=== PATIENT | male | born 1945 | race Caucasian/White ===

== ENCOUNTER 2022-03-31 12:54 | Observation (INO) | payer MEDICARE, SELFPAY ==
[2022-03-31] VITALS (15 sets, daily range): BP systolic 93–148; BP diastolic 55–72; PULSE 70–103; RESP 16–26; TEMP 35.8–37; O2SAT 94–100; BMI 26.7
--- NOTE | ~2022-03-31 | XR_ITS ---
MODIFIED ESOPHAGRAM HISTORY: Dysphagia. TECHNIQUE: Modified barium esophagram was performed on 04/02/2022. I administered fluoroscopy and perf ormed the exam with speech pathologist. Patient was seated for lateral fluoroscopic imaging for mana stion of thin liquids, pudding, solids and quantified amounts, followed by thin liquids in uncontroll ed amounts. This was recorded on tape. A single fluoroscopic spot image was also recorded. The DAP fo r this procedure was 0.5 Gycm2. The amount of fluoroscopy time used during this procedure was 0.7 min utes. FINDINGS: Oral stage: Reduced labial seal/extension and reduces with movement but with adequate function. Pharyngeal stage: Adequate function. Cervical/esophageal stage: Adequate function. IMPRESSION: Patient tolerated regular consistency oral feedings in the upright position. Please kasia elate with speech pathologist findings and specific feeding recommendations. Reviewed, dictated and finalized at location A. IMPRESSION: Patient tolerated regular consistency oral feedings in the upright position. Please correlate with speech pathologist findings and specific feedi ng recommendations.
--- NOTE | ~2022-03-31 | CT_ITS ---
EXAMINATION: CT brain wo con DATE: 03/31/2022 13:38 INDICATION: Generalized weakness. Ground-level fall. TECHNIQUE: Computed tomography (CT) of the head was performed without intravenous contrast. The dose- length product was 681.00 mGy-cm. Automated exposure control and iterative reconstruction technique w ere employed. COMPARISON: No prior studies for comparison. FINDINGS: There is generalized brain parenchymal atrophy. There is a chronic focal right cerebellar i nfarction. There are scattered mild periventricular and subcortical white matter changes, most likely related to small vessel ischemic disease (microangiopathy). No acute intracranial hemorrhage, infarc tion, mass or mass effect. There is small osteoma in the right frontal sinus. There is mucosal thicke dequan of the ethmoid and right frontal sinus. Mastoids are pneumatized. No depressed skull fractures. IMPRESSION: 1. No acute intracranial abnormality. 2: Chronic right cerebellar infarction. 3: Chronic age-related findings. Reviewed, dictated and finalized at location A.
--- NOTE | ~2022-03-31 | XR_ITS ---
XR chest 1V portable 03/31/2022 14:03 Indication: Weakness and shortness of breath Procedure: AP portable chest Comparison: No prior studies for comparison. Findings: Status post median sternotomy for CABG. Borderline heart size. Patchy bilateral airspace di sease, consistent with pneumonia. No pleural effusion or pneumothorax. Impression: 1: Patchy bilateral airspace disease, compatible with pneumonia. Reviewed, dictated and finalized at location A. Impression: 1: Patchy bilateral airspace disease, compatible with pneumonia.
--- NOTE | ~2022-03-31 | CT_ITS ---
EXAMINATION: CT cervical spine wo con DATE: 03/31/2022 13:38 INDICATION: Ground-level fall. Neck pain. TECHNIQUE: Computed tomography (CT) of the cervical spine was performed without intravenous contrast. The dose-length product was 444 mGy-cm. COMPARISON: None FINDINGS: There is partial fusion at C3-4. There is degenerative disc disease at C4-5, C5-6, C6-7 and C7-T1. Odontoid process is within normal limits. Craniovertebral junction is normal. No evidence for perched facet. There is multilevel advanced facet and uncinate hypertrophy. There is emphysema and c hronic interstitial changes in the lung apices. No acute fracture or traumatic malalignment. There ar e prominent anterior bridging osteophytes at multiple levels. IMPRESSION: 1. No acute abnormality of the cervical spine. 2: Severe cervical spondylosis. Reviewed, dictated and finalized at location A.
--- NOTE | 2022-03-31 13:03 | ECG_ITS ---
Measurements Intervals [place] Rate: 100 P: 34 [place]: 183 QRS: 5 QRSD: 104 T: 17 QT: 332 QTc: 430 Interpretive Statements SINUS TACHYCARDIA DELAYED PRECORDIAL R/S TRANSITION CONSIDER INFERIOR INFARCT, AGE INDETERMINATE BORDERLINE ST-T WAVE ABNORMALITY- HIGH LATERAL LEADS BASELINE ARTIFACT- I, II, III, AVR, AVL, AVF ABNORMAL ECG Electronically Signed On 03-31-2022 15:16:21 CDT by Yong Melo D.O.
--- NOTE | 2022-03-31 13:09 | ED.FALL ---
HPI - Fall General Chief Complaint: Fall Stated Complaint: Fall, Ground Level Time Seen by Provider: 03/31/22 12:59 History of Present Illness HPI Narrative: 77-year-old male with a history of Parkinson's disease presents emergency room for evaluation of a ground-level fall. Patient states at approximately 3 AM, he woke up to use the restroom. Patient slid out of bed and has been laying on the floor until his found him approximately 9 hours later. On presentation to the emergency room, patient is alert and oriented x3 and has no complaints of pain. Patient is complaining of generalized weakness. Related Data Home Medications Medication Instructions Recorded Confirmed aspirin 81 mg tablet,delayed 81 mg PO DAILY 09/23/19 01/05/22 release atorvastatin 10 mg tablet 10 mg PO DAILY 09/23/19 01/05/22 clopidogrel 75 mg tablet 75 mg PO DAILY 09/23/19 01/05/22 divalproex 500 mg tablet,extended 500 mg PO TID 09/23/19 01/05/22 release 24 hr lorazepam 1 mg tablet See Rx Instructions .Route 09/23/19 01/05/22 .COMPLEX PRN risperidone 2 mg tablet 2 mg PO BID 09/23/19 01/05/22 tamsulosin 0.4 mg capsule 0.4 mg PO .COMPLEX 09/23/19 01/05/22 clonazepam 0.5 mg tablet 0.5 mg PO .COMPLEX 01/05/22 01/05/22 metoprolol tartrate 50 mg tablet 50 mg PO BID 01/05/22 01/05/22 Allergies Allergy/AdvReac Type Severity Reaction Status Date / Time amlodipine Allergy Unknown Unknown Verified 03/31/22 14:41 codeine Allergy Unknown Unknown Verified 03/31/22 14:41 olanzapine Allergy Unknown Unknown Verified 03/31/22 14:41 salsalate Allergy Unknown Unknown Verified 03/31/22 14:41 doxycycline AdvReac Diarrhea Verified 03/31/22 14:41 Review of Systems Review of Systems: CONSTITUTIONAL: Denies fever, chills, or sweats. EYES: Denies visual changes, redness, or discharge. ENT: Denies rhinorrhea, congestion, sore throat, or otalgia. CARDIOVASCULAR: Denies chest pain, palpitations, or edema. RESPIRATORY: Denies cough or dyspnea. GASTROINTESTINAL: Denies abdominal pain, nausea, vomiting, or diarrhea. GENITOURINARY: Denies dysuria or hematuria. SKIN: Denies rash or itching. MUSCULOSKELETAL: Denies back pain, joint pain, or myalgia. NEUROLOGIC: Reports generalized weakness PSYCHIATRIC: Denies anxiety or depression. [facility] Past Medical History Medical History (Updated 03/31/22 @ 16:20 by Kavin Olson APRN) Anxiety Arterial stent thrombosis Benign prostate hyperplasia Coronary artery disease Dementia Hyperlipidemia Parkinson disease Pulmonary valvular stenoses Family History Family History Father Family history of lung cancer Mother Family history of malignant neoplasm of breast, Onset Age: 79 Family history of malignant neoplasm of breast in first degree relative Sibling Family history of malignant neoplasm of breast in first degree relative Other Diabetes mellitus Family history of allergic disorder Family history of cardiovascular disease Hypertension Social History Social History (Updated 03/31/22 @ 15:57 by Kerry Freeman PA-C) Social History: Surrogate medical decision maker: Marii Joseph, spouse. Code status: Full code. Smoking status: Former smoker Tobacco type: e-cigarettes/vaping Alcohol intake: never Substance use: never Additional living arrangements comments: Lives with in [place]. 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 Exam Narrative: GENERAL: Well-appearing, well-nourished, and in no acute distress. HEAD: Normocephalic, atraumatic. EYES: Conjunctivae normal, PERRLA and EOMI. ENT: External nose normal, Nares clear, no rhinorrhea or epistaxis. Mucous membranes moist. Oropharynx without tonsillar hypertrophy exudate or other lesions. External ears normal, bilateral TMs normal bilaterally NECK: Supple. No carotid bruits or JVD CHEST: Clear to auscultation. No re
[2022-03-31] MEDS: SODIUM CHLORIDE 0.9% IV 1,000 ML 150 ML IV CONT (13:19)
[2022-03-31 13:29] LABS: Basophils Percent Auto 0.2 % (0.2-1.2); Eosinophils Percent Auto 0.2 % (0-4.4); Hematocrit 41.1 % (42.0-52.0); Hemoglobin 13.7 g/dL (14.0-18.0); Immature Granulocyte Absolute 0.04 K/mm3 (0.00-0.031); Immature Granulocyte Percent A 0.8 % (0-0.5); Immature Platelet Fraction Pct 6.1 % (0.9-11.2); Lymphocytes Absolute Auto 0.72 K/mm3 (0.9-3.2); Lymphocytes Percent Auto 14.8 % (18.3-44.2); Mean Corpuscular HGB Conc 33.3 g/dl (32-36); Mean Corpuscular Hemoglobin 33.3 pg (26-34); Mean Corpuscular Volume 99.8 fl (80-100); Mean Platelet Volume 10.9 fl (7.4-10.4); Monocytes Absolute Auto 0.8 K/mm3 (0.1-0.6); Monocytes Percent Auto 16.3 % (2.6-8.5); Neutrophils Absolute Auto 3.3 K/mm3 (1.3-6.7); Neutrophils Percent Auto 67.7 % (45.5-73.1); Platelet Count Result 104 k/mm3 (150-375); Red Blood Count 4.12 M/mm3 (4.6-6.20); Red Cell Distribution Width 13.6 % (11.5-14.5); White Blood Count 4.9 K/mm3 (4.5-10.0)
[2022-03-31 13:38] LABS: Lactic Acid Reflex 2.7 mmol/L (0.7-2.0)
[2022-03-31 13:39] LABS: Alanine Aminotransferase 8 U/L (6-50); Albumin Level 3.6 g/dL (3.5-5.1); Alkaline Phosphatase 45 U/L (38-126); Anion Gap 10 mmol/L (8-16); Aspartate Amino Transferase 23 U/L (17-59); Bilirubin,Total 0.9 mg/dL (0.2-1.3); Blood Urea Nitrogen 14 mg/dL (9-20); Calcium 8.9 mg/dL (8.4-10.2); Carbon Dioxide 27 mmol/L (22-30); Chloride 95 mmol/L (98-107); Creatine Kinase 263 U/L (55-170); Estimated CRCL calculation 64 ml/min; Estimated Glomerular Filt Rate > 60; Glucose 135 mg/dL (65-110); Potassium 4.2 mmol/L (3.4-5.0); Sodium 132 mmol/L (137-145)
[2022-03-31 13:43] LABS: Appearance Urine Clear (Clear); Bilirubin Urine Negative (Negative); Color Urine Yellow (Yellow); Glucose Urine UA Negative (Negative); Ketones Urine Negative (Negative); Leukocyte Esterase Ur Negative LEU/UL (Negative); Nitrate Urine Negative (Negative); Protein Urine Negative (Negative); Specific Grav Ur 1.015 (1.001-1.035); Urobilinogen Urine 0.2 mg/dL (<2.0); pH Urine 8.5 (5.0-9.0)
[2022-03-31 13:50] LABS: Add Urine Microscopic? YES; Blood Urine Trace-Intact (Negative)
[2022-03-31 13:52] LABS: RBC Urine 0-2 /hpf (0-2); WBC Urine 0-3 /hpf
[2022-03-31 13:55] LABS: Troponin I < 0.012 ng/mL (0.000-0.034)
[2022-03-31 15:17] LABS: SARS-CoV-2 RNA PCR Negative
--- NOTE | 2022-03-31 15:25 | PM.IMHP ---
H&P: HPI History of Present Illness Date/Time: 03/31/22 15:25 Chief Complaint: Fall out of bed. Narrative: This is a pleasant 77-year-old male with Parkinson, coronary artery disease, peripheral vascular disease, and benign prostatic hyperplasia who presented to the ED via EMS from home for evaluation after he fell out of bed. At about 03:00 he got up to use the restroom but was too weak to stand up and he slid out of bed onto his buttocks. Luckily there was no loss of consciousness and he sustained no injuries but he was too weak to get himself up and he lay on the floor for nearly 9 hours before his found him and called for help. With further questioning, he has been more weak the last several days and in fact he thought perhaps he may have a UTI though he has no symptoms of such. He has had some transient blood pressures at the lower end of normal in the ER but vital signs have otherwise been stable and he has been afebrile. His total CK was mildly elevated at 263 but other labs are reassuring and stable. CT of the head and neck showed no acute findings. Chest x-ray however demonstrated patchy bilateral airspace disease compatible with pneumonia and he is being admitted in this setting. With further questioning he does endorse a cough which is occasionally productive as well as a mild decrease in appetite and some loose stools. He denies fever, chills, sweats, congestion, sore throat, chest pain, pleuritic pain, shortness the breast, dysphagia, concerns for aspiration, nausea, and vomiting. No sick contacts. Review of Systems Review of Systems: Twelve systems were reviewed. No headache or neck ache. He denies focal weakness and paresthesias. No syncope or presyncope. Except as documented, all other systems were reviewed and are negative. [facility] Past Medical History Medical History (Updated 03/31/22 @ 20:20 by Kerry Freeman PA-C) Anxiety Benign prostate hyperplasia Coronary artery disease Dementia Hyperlipidemia Parkinson disease Peripheral vascular disease Thrombocytopenia Surgical History Surgical History (Updated 03/31/22 @ 20:20 by Kerry Freeman PA-C) History of cardiac catheterization History of left knee surgery History of three vessel coronary artery bypass History of vascular surgery Bilateral lower extremity stents. Family History Family History Father Family history of lung cancer Mother Family history of malignant neoplasm of breast, Onset Age: 79 Family history of malignant neoplasm of breast in first degree relative Sibling Family history of malignant neoplasm of breast in first degree relative Other Diabetes mellitus Family history of allergic disorder Family history of cardiovascular disease Hypertension Social History Social History Social History: Surrogate medical decision maker: Mariimacy Joseph, spouse. Code status: Full code. Smoking status: Current every day smoker Tobacco type: e-cigarettes/vaping Smokeless tobacco user: other Additional smoking assessment comments: pt vapes with low dose menthol everyday Alcohol intake: never Substance use: never Additional living arrangements comments: Lives with in [place]. 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 Spiritual care concerns: Yes (Shinto) Meds Home Medications and Allergies Home Medications Medication Instructions Recorded Confirmed Type aspirin 81 mg tablet,delayed 81 mg PO DAILY 09/23/19 03/31/22 History release atorvastatin 10 mg tablet 10 mg PO DAILY 09/23/19 03/31/22 History divalproex 500 mg tablet,extended 500 mg PO TID 09/23/19 03/31/22 History release 24 hr lorazepam 1 mg tablet See Rx Instructions .Route 09/23/19 03/31/22 History .COMPLEX PRN Anxiety risperidone 2 mg tablet 2 mg PO BID
--- NOTE | 2022-03-31 15:54 | PC.NURSE ---
Patients dinner tray called at this time, will be sent to room 330
[2022-03-31 16:26] LABS: Reflex Lactic Acid Yes or No Add Lactic
[2022-03-31 17:10] LABS: Lactic Acid 0.8 mmol/L (0.7-2.0)
--- NOTE | 2022-03-31 17:20 | ADMGEN ---
This patient, Constantino Joseph, was admitted to [facility] Surg Room 330-01. Patient/family oriented to hospital policies and general routines including ID bracelet, bed and alarms, visiting hours, pain management, procedures, bathroom and other care routines, personal items, smoking policy, room service/diet, and visiting hours. Information on how to activate the Rapid Response Team has been discussed. Patient/Family are encouraged to report perceived risks to care and to ask questions if they do not understand what they are told or what they should do.
[2022-03-31] MEDS: CARBIDOPA/LEVODOPA 25/100 MG TABLET 2 TABLET BY MOUTH (21:56)
[2022-03-31] MEDS: SODIUM CHLORIDE 0.9% IV 1,000 ML 125 ML IV CONT (21:56)
[2022-03-31] MEDS: clonazePAM (*CRX) 0.5 MG TABLET PO (22:12)
[2022-04-01] VITALS (10 sets, daily range): BP systolic 111–155; BP diastolic 59–85; PULSE 84–103; RESP 17–18; TEMP 36.2–36.8; O2SAT 95–98
[2022-04-01] MEDS: SODIUM CHLORIDE 0.9% IV 1,000 ML 125 ML IV CONT ×3 (06:30→23:52)
[2022-04-01 06:50] LABS: Hematocrit 40.3 % (42.0-52.0); Hemoglobin 13.2 g/dL (14.0-18.0); Immature Platelet Fraction Pct 7.3 % (0.9-11.2); Mean Corpuscular HGB Conc 32.8 g/dl (32-36); Mean Corpuscular Volume 100.8 fl (80-100); Mean Platelet Volume 11.2 fl (7.4-10.4); Platelet Count Result 95 k/mm3 (150-375); Red Cell Distribution Width 13.5 % (11.5-14.5); White Blood Count 5.6 K/mm3 (4.5-10.0)
[2022-04-01 07:08] LABS: Anion Gap 9 mmol/L (8-16); Blood Urea Nitrogen 13 mg/dL (9-20); Calcium 8.3 mg/dL (8.4-10.2); Carbon Dioxide 25 mmol/L (22-30); Chloride 101 mmol/L (98-107); Estimated CRCL calculation 70 ml/min; Estimated Glomerular Filt Rate > 60; Glucose 92 mg/dL (65-110); Magnesium 1.9 mg/dL (1.6-2.3); Potassium 4.1 mmol/L (3.4-5.0); Sodium 135 mmol/L (137-145)
--- NOTE | 2022-04-01 08:21 | PM.IMPN ---
Progress Note: A&P Assessment and Plan (1) Fall from bed: Code(s): W06.XXXA - Fall from bed, initial encounter Status: Acute Assessment and Plan: Patient reports that he has been feeling weak the past couple of days and when he tried to get out of bed this morning he was weak and slid to the ground. He denies syncope, near syncope, and focal weakness. Initiate fall precautions. He is to ambulate only with assistance pending PT/OT consult. (2) Pneumonia: Code(s): J18.9 - Pneumonia, unspecified organism Status: Acute Assessment and Plan: Monitor vital signs, I&Os, neuro status and patient is a fall risk Follow WBC, serum electrolytes, temperature curves and cultures Send sputum cultures Obtain Pneumococcal antigen urine and legionella pneumophila Ag Ur Oxygen via NC; wean as tolerated. Keep SpO2 greater than 88% Ceftriaxone 2 gram IV q24H and Azithromycin 500mg IV q24H DuoNeb q6H and Albuterol q2H PRN P.r.n. Tylenol, Zofran, and melatonin (3) Elevated creatine kinase: Code(s): R74.8 - Abnormal levels of other serum enzymes Status: Acute Assessment and Plan: Mildly elevated due to lying on the floor for nearly 9 hours. Repeat CK this evening to ensure it does not jumped dramatically. (4) Parkinson disease: Code(s): G20 - Parkinson's disease Status: Acute Assessment and Plan: Continue carbidopa-levodopa. Modified barium swallow ordered to rule out aspiration. (5) Thrombocytopenia: Code(s): D69.6 - Thrombocytopenia, unspecified Status: Acute Assessment and Plan: Chronic and stable on review of previous labs. Subjective Date/time seen: 04/01/22 08:21 Patient is doing well this morning. He is alert to self. He is a poor historian. He continues on IV antibiotics Rocephin azithromycin for community-acquired pneumonia. PT and OT have been consulted due to the patient's generalized weakness. Will monitor today and plan for possible discharge soon. Patient denies any shortness of breath he does not require supplemental oxygen and lung sounds are diminished. Review of Systems Review of Systems: All systems reviewed & are unremarkable except as noted in HPI and below Exam Narrative: General: No acute distress. Mental Status: Awake, alert and oriented to person, place, and time with clear speech. Skin: Skin in warm, dry and intact without rashes or lesions. Head: Normocephalic and atraumatic. Eyes: Conjunctivae are clear without exudates or hemorrhage. Sclera is non-icteric. EOM are intact, PERRLA. Ears: The external ear and canal are non-tender and without swelling or discharge. Nose: Nasal mucosa is pink and moist. Septum midline. Nares patent bilaterally. Throat: Oral mucosa pink and moist with good dentition. Tongue midline. Neck: The neck supple without adenopathy. Trachea midline. No JVD. Cardiac: S1 and S2 regular rate and rhythm. No murmurs, gallops, or rubs auscultated. Respiratory: Chest wall symmetric, nontender and without deformity or trauma. Respirations even and unlabored. Lung sounds are diminished to auscultation in all lobes bilaterally without wheezes, rhonchi, or rales. Abdominal: Abdomen soft, round and non-tender to palpation. Bowel sounds present and normoactive in all 4 quadrants. Spine: Neck and back with grossly normal curvature, no deformity in appearance or signs of trauma. Extremities: Upper and lower extremities atraumatic without tenderness or deformity. Full range of motion and muscle strength 4/5 to all extremities bilaterally. Neurological: Full and symmetric motor and light touch sensation bilaterally. Cranial nerves II-XII grossly intact. Objective Data Vital Signs Vital Signs: Vital Signs - 24 hr 03/31/22 12:55 03/31/22 13:00 03/31/22 13:01 Temperature 98 F Pulse Rate 103 H 103 H 100 Respiratory Rate 19 23 H 26 H Blood Pressure 106/63 106/63 Pulse Oximetry 96 95 96 Oxygen
[2022-04-01] MEDS: TAMSULOSIN HCL 0.4 MG CAPSULE PO (08:39)
[2022-04-01] MEDS: ASPIRIN 81 MG ENTERIC TABLET PO (08:39)
[2022-04-01] MEDS: CARBIDOPA/LEVODOPA 25/100 MG TABLET 2 TABLET BY MOUTH ×5 (08:39→21:27)
[2022-04-01] MEDS: ATORVASTATIN 10 MG TABLET PO (08:39)
[2022-04-01] MEDS: risperiDONE 1 MG TABLET 2 MG PO ×2 (08:39→16:40)
[2022-04-01] MEDS: clonazePAM (*CRX) 0.5 MG TABLET PO ×2 (08:42→16:40)
[2022-04-01] MEDS: DIVALPROEX SODIUM ER 500 MG TAB.24H PO ×3 (08:42→16:40)
[2022-04-01 10:36] LABS: Creatine Kinase 366 U/L (55-170)
--- NOTE | 2022-04-01 11:56 | PCSTNOTE ---
Modified Barium Swallow Study HOLD until tomorrow 04/02/22 due to radiology availability. Nursing aware.
[2022-04-01] MEDS: MELATONIN 5 MG TABLET PO (21:27)
[2022-04-02 02:15] LABS: Total Triiodothyronine (T3) 1.05 NG/ML (0.97-1.69)
[2022-04-02 05:23] VITALS: BP 116/80; PULSE 92; RESP 18; TEMP 36.4; O2SAT 97
[2022-04-02 06:23] LABS: Basophils Percent Auto 0.5 % (0.2-1.2); Eosinophils Absolute Auto 0.1 K/mm3 (0-0.3); Eosinophils Percent Auto 2.6 % (0-4.4); Hemoglobin 12.7 g/dL (14.0-18.0); Immature Granulocyte Absolute 0.06 K/mm3 (0.00-0.031); Immature Granulocyte Percent A 1.4 % (0-0.5); Immature Platelet Fraction Pct 4.5 % (0.9-11.2); Lymphocytes Absolute Auto 1.09 K/mm3 (0.9-3.2); Lymphocytes Percent Auto 26.1 % (18.3-44.2); Mean Corpuscular HGB Conc 33.4 g/dl (32-36); Mean Corpuscular Hemoglobin 33.2 pg (26-34); Mean Corpuscular Volume 99.5 fl (80-100); Mean Platelet Volume 10.6 fl (7.4-10.4); Monocytes Absolute Auto 0.9 K/mm3 (0.1-0.6); Monocytes Percent Auto 22.1 % (2.6-8.5); Neutrophils Percent Auto 47.3 % (45.5-73.1); Platelet Count Result 93 k/mm3 (150-375); Red Blood Count 3.82 M/mm3 (4.6-6.20); Red Cell Distribution Width 13.4 % (11.5-14.5); White Blood Count 4.2 K/mm3 (4.5-10.0)
[2022-04-02 06:36] LABS: Lactic Acid Reflex 1.4 mmol/L (0.7-2.0)
[2022-04-02 06:40] LABS: Alkaline Phosphatase 43 U/L (38-126); Anion Gap 6 mmol/L (8-16); Aspartate Amino Transferase 23 U/L (17-59); Bilirubin,Total 0.5 mg/dL (0.2-1.3); Blood Urea Nitrogen 9 mg/dL (9-20); Calcium 7.8 mg/dL (8.4-10.2); Carbon Dioxide 27 mmol/L (22-30); Chloride 102 mmol/L (98-107); Estimated CRCL calculation 70 ml/min; Estimated Glomerular Filt Rate > 60; Glucose 97 mg/dL (65-110); Magnesium 1.7 mg/dL (1.6-2.3); Potassium 4.2 mmol/L (3.4-5.0); Sodium 135 mmol/L (137-145)
[2022-04-02 06:49] LABS: Alanine Aminotransferase < 6 U/L (6-50)
[2022-04-02 08:00] VITALS: PULSE 92; RESP 18; O2SAT 97
[2022-04-02 08:02] LABS: Atypical Lymphocytes Present
[2022-04-02] MEDS: TAMSULOSIN HCL 0.4 MG CAPSULE PO (08:03)
[2022-04-02] MEDS: risperiDONE 1 MG TABLET 2 MG PO ×2 (08:03→16:36)
[2022-04-02] MEDS: ASPIRIN 81 MG ENTERIC TABLET PO (08:03)
[2022-04-02] MEDS: CARBIDOPA/LEVODOPA 25/100 MG TABLET 2 TABLET BY MOUTH ×3 (08:03→16:37)
[2022-04-02] MEDS: ATORVASTATIN 10 MG TABLET PO (08:03)
[2022-04-02] MEDS: DIVALPROEX SODIUM ER 500 MG TAB.24H PO ×3 (08:03→16:36)
[2022-04-02] MEDS: clonazePAM (*CRX) 0.5 MG TABLET PO ×2 (08:05→16:37)
[2022-04-02 10:24] VITALS: O2SAT 96
--- NOTE | 2022-04-02 10:26 | PC.NURSE ---
Per provider pt ok to d/c with home health.
--- NOTE | 2022-04-02 10:29 | PC.NURSE ---
Pt set up with [facility] per care coordination
--- NOTE | 2022-04-02 10:45 | PCSTNOTE ---
Addendum entered by Beti Cruz, YARELIS 04/02/22 13:50: Modified Barium Swallow completed. Original Note: Weak labial seal but able to achieve both on spoon and straw. Slow oral transit with delayed onset. No penetration or aspiration. Recommend level 4 diet (pureed) with thin liquids. Contacted nurse and hospitalist with this information. Thank you for the referral of this patient.
--- NOTE | 2022-04-02 10:54 | PC.NURSE ---
speech recommends puree and thin liquids
[2022-04-02] MEDS: SODIUM CHLORIDE 0.9% IV 1,000 ML 125 ML IV CONT (11:00)
--- NOTE | 2022-04-02 12:04 | PM.DS ---
DS: Admitting Diagnosis Discharge Date 04/02/2022 Admitting Diagnosis Community-acquired pneumonia DS: Discharge Diagnosis Discharge Diagnosis (1) Fall from bed: Code(s): W06.XXXA - Fall from bed, initial encounter Status: Acute Assessment and Plan: Patient reports that he has been feeling weak the past couple of days and when he tried to get out of bed this morning he was weak and slid to the ground. He denies syncope, near syncope, and focal weakness. Initiate fall precautions. He is to ambulate only with assistance pending PT/OT consult. (2) Pneumonia: Code(s): J18.9 - Pneumonia, unspecified organism Status: Acute Assessment and Plan: Monitor vital signs, I&Os, neuro status and patient is a fall risk Follow WBC, serum electrolytes, temperature curves and cultures Send sputum cultures Obtain Pneumococcal antigen urine and legionella pneumophila Ag Ur Oxygen via NC; wean as tolerated. Keep SpO2 greater than 88% Ceftriaxone 2 gram IV q24H and Azithromycin 500mg IV q24H DuoNeb q6H and Albuterol q2H PRN P.r.n. Tylenol, Zofran, and melatonin (3) Elevated creatine kinase: Code(s): R74.8 - Abnormal levels of other serum enzymes Status: Acute Assessment and Plan: Mildly elevated due to lying on the floor for nearly 9 hours. Repeat CK this evening to ensure it does not jumped dramatically. (4) Parkinson disease: Code(s): G20 - Parkinson's disease Status: Acute Assessment and Plan: Continue carbidopa-levodopa. Modified barium swallow ordered to rule out aspiration. (5) Thrombocytopenia: Code(s): D69.6 - Thrombocytopenia, unspecified Status: Acute Assessment and Plan: Chronic and stable on review of previous labs. DS: Summary Hospital Course Reason for hospitalization: Physical debility Community-acquired pneumonia Hospital Course: Patient is a 77-year-old male with a past medical history of anxiety, BPH, CAD dementia, hyperlipidemia, Parkinson's disease, PVD and thrombocytopenia. She reported to the [facility] via EMS after home evaluation about it. Approximately 3:00 a.m. that morning he was trying to use the restroom and felt too weak to stand and onto his buttocks. Patient denies any loss of consciousness and he denies any known injuries but he was too weak to get himself up and laid on the floor Hours before his found him and called for help. Patient reports that prior to admission he was weak was several days thought that he had a urinary tract infection with no previous symptoms. He did have some transient pressure at the lower end of normal in the emergency department vital signs otherwise have been stable and afebrile in fact. Lab was obtained. Patient had a WBC of 4.9, hemoglobin 13.7, hematocrit 1 platelet 104. Sodium 132, potassium 4.2, BUN 14, creatinine 1 and glucose 135, troponin negative and elevated CK 263 we will FT is and negative UA. CT of the head was obtained with no in acute intracranial abnormalities, cervical spine revealed no acute abnormalities skull spine and chest x-ray reported patchy bilateral airspace compatible with pneumonia. Therefore the patient was started on azithromycin were sent a sputum culture was ordered and checking urine antigens. Patient's PC repeat 19 was negative. Patient's EKG was monitored and did not medically. Patient's medications were continued for his Parkinson's disease and thrombocytopenia. Stable during this hospitalization. She remained on room air and afebrile during his hospitalization. Ports of to PE or respiratory distress therefore his medications continued for IV and at times 48 hours and transition to Levaquin for following 5 days after discharge. Patient will go with home health with [facility]. Patient worked well with physical therapy and occupational therapy on the day of discharge with no acute complaints. He denies any read. Was a
--- NOTE | 2022-04-02 12:55 | PC.NURSE ---
spoken to Marii trujillo , state will need ambulance ride to home.
[2022-04-02 14:00] VITALS: BP 134/70; PULSE 104; RESP 18; TEMP 36.4; O2SAT 96
--- NOTE | 2022-04-02 14:03 | PC.NURSE ---
pt discharging home via ambulance. informed, discharge paperwork explained, verbalized understanding.
--- NOTE | 2022-04-02 14:04 | PC.NURSE ---
discharge paperwork faxed to [facility].
--- NOTE | 2022-04-02 14:29 | PC.NURSE ---
IV removed, discharge paperwork explained to and pt, verbalized understanding, emt's to transport to home.
--- NOTE | 2022-04-02 14:59 | PC.NURSE ---
awaiting emt's for transport home
--- NOTE | 2022-04-02 17:36 | PC.NURSE ---
called and informed that pt is leaving and emt's on way to home from hospital. Informed that pt is recommended to be on puree diet, explained puree diet. Thin liquids are ok per speech. Reminded to schedule f/u with pcp.n all question and concerns answered.
[2022-04-05 05:33] LABS: Pneumococcal Antigen Urine Not Detected (Not Detected)
[2022-04-05 18:26] LABS: Legionella pneumophila Ag Ur Not Detected (Not Detected)
== END 2022-04-02 17:45 | disposition home health service (06) ==
LOC: ANHED 13:57 → ANH3MEDSUR 16:20
PROVIDERS: Physician Assistant; Admitting Provider Chiropractor; Emergency Provider Nurse Practitioner Family; PCP Nurse Practitioner Adult Health; Visit Provider Nurse Practitioner Family
DX: J18.9 Pneumonia, unspecified organism (principal); R53.1 Weakness; W06.XXXA Fall from bed, initial encounter; Z91.81 History of falling; Y92.003 Bedroom of unspecified non-institutional (private) residence as the place of occurrence of the external cause; R74.8 Abnormal levels of other serum enzymes; D69.6 Thrombocytopenia, unspecified; F41.9 Anxiety disorder, unspecified; N40.0 Benign prostatic hyperplasia without lower urinary tract symptoms; I25.10 Atherosclerotic heart disease of native coronary artery without angina pectoris; E78.5 Hyperlipidemia, unspecified; Z95.1 Presence of aortocoronary bypass graft; Z95.820 Peripheral vascular angioplasty status with implants and grafts; G20 Parkinson's disease; R79.89 Other specified abnormal findings of blood chemistry; Z20.822 Contact with and (suspected) exposure to COVID-19; F02.80 Dementia in other diseases classified elsewhere, unspecified severity, without behavioral disturbance, psychotic disturbance, mood disturbance, and anxiety; R00.0 Tachycardia, unspecified; I73.9 Peripheral vascular disease, unspecified; Z87.891 Personal history of nicotine dependence; M47.812 Spondylosis without myelopathy or radiculopathy, cervical region; Z79.82 Long term (current) use of aspirin; Z79.02 Long term (current) use of antithrombotics/antiplatelets; Z79.899 Other long term (current) drug therapy; Z80.3 Family history of malignant neoplasm of breast; Z80.1 Family history of malignant neoplasm of trachea, bronchus and lung; Z82.49 Family history of ischemic heart disease and other diseases of the circulatory system
CPT/HCPCS: 36415; 70450; 71045; 72125; 80048; 80053; 81001; 82550; 83605; 83735; 84439; 84443; 84480; 84484; 85025; 85027; 85055; 87449; 87899; 92611; 93005; 96361; 96365; 96366; 96367; 96376; 97110; 97116; 97161; 97165; 97530; 99285; A9270; C9803; G0378; J0456; J0696; J7030; U0003; U0005

== ENCOUNTER 2022-04-06 14:46 | Emergency (ER) | payer MEDICARE, SELFPAY ==
[2022-04-06] VITALS (25 sets, daily range): BP systolic 84–136; BP diastolic 43–74; PULSE 81–103; RESP 14–34; TEMP 37.6; O2SAT 89–96
--- NOTE | ~2022-04-06 | XR_ITS ---
EXAMINATION: XR chest 1V portable DATE: 04/06/2022 15:22 INDICATION: Shortness of breath. TECHNIQUE: A single frontal view of the chest was obtained. COMPARISON: Chest single view 03/31/2022 FINDINGS: The patient is rotated to his right. Lung volumes are normal. There are interstitial and ai rspace opacities in all lung zones bilaterally. No pleural effusion or pneumothorax. The heart size i s normal. Median sternotomy wires and mediastinal surgical clips are seen, likely from prior coronary artery bypass grafting. There are old healed right rib fractures. IMPRESSION: 1. Diffuse lung disease with mild worsening on the left, consistent with pneumonia versus pulmonary e berto. Reviewed, dictated and finalized at location A. IMPRESSION: 1. Diffuse lung disease with mild worsening on the left, consistent with pneumo reinaldo versus pulmonary edema.
--- NOTE | 2022-04-06 14:52 | ECG_ITS ---
Measurements Intervals [place] Rate: 106 P: 14 NM: 148 QRS: 12 QRSD: 103 T: 35 QT: 319 QTc: 425 Interpretive Statements SINUS TACHYCARDIA INFERIOR MYOCARDIAL INFARCTION, PROBABLY OLD LOW-VOLTAGE QRS IN PRECORDIAL LEADS ABNORMAL ECG COMPARED TO ECG 03/31/2022 13:00:41 NO SIGNIFICANT CHANGES Electronically Signed On 04-07-2022 12:17:45 CDT by Juliano Goldstein M.D.
[2022-04-06] MEDS: SODIUM CHLORIDE 0.9% IV 500 ML 999 ML IV CONT (15:16)
[2022-04-06 15:21] LABS: Mean Corpuscular HGB Conc 33.3 g/dl (32-36); Mean Corpuscular Hemoglobin 32.4 pg (26-34); Mean Corpuscular Volume 97.3 fl (80-100); Mean Platelet Volume 10.3 fl (7.4-10.4); Platelet Count Result 113 k/mm3 (150-375); Red Cell Distribution Width 13.3 % (11.5-14.5); White Blood Count 9.9 K/mm3 (4.5-10.0)
[2022-04-06 15:31] LABS: Alanine Aminotransferase 8 U/L (6-50); Albumin Level 3.2 g/dL (3.5-5.1); Alkaline Phosphatase 44 U/L (38-126); Anion Gap 7 mmol/L (8-16); Aspartate Amino Transferase 30 U/L (17-59); Bilirubin,Total 0.5 mg/dL (0.2-1.3); Blood Urea Nitrogen 22 mg/dL (9-20); Calcium 8.6 mg/dL (8.4-10.2); Carbon Dioxide 27 mmol/L (22-30); Chloride 100 mmol/L (98-107); Estimated Glomerular Filt Rate > 60; Glucose 121 mg/dL (65-110); Potassium 4.1 mmol/L (3.4-5.0); Sodium 134 mmol/L (137-145)
[2022-04-06 15:43] LABS: Band Neutrophils Percent 16 % (0-6); Lymphocytes Absolute Manual 0.39 K/mm3 (1.1-4.5); Monocytes Absolute Manual 1.38 K/mm3 (0.1-0.90); Monocytes Percent Manual 14 % (3-9); Neutrophils Absolute Manual 8.11 K/mm3 (1.3-6.7); Neutrophils Percent Manual 66 % (46-73); Total Cells Counted 100
[2022-04-06 15:44] LABS: Platelet Estimate Decreased (Adequate)
--- NOTE | 2022-04-06 16:04 | PC.NURSE ---
Patient's called to inform us that she has requested a hospice/palliative care consult with [facility] over the phone today. Patient's reports that his care is becoming too much for her at home.
[2022-04-06 16:55] LABS: Appearance Urine Clear (Clear); Bilirubin Urine Negative (Negative); Color Urine Yellow (Yellow); Glucose Urine UA Negative (Negative); Ketones Urine 1+ mg/dL (Negative); Leukocyte Esterase Ur Negative LEU/UL (Negative); Nitrate Urine Negative (Negative); Protein Urine Negative (Negative); Specific Grav Ur >= 1.030 (1.001-1.035); pH Urine 6.5 (5.0-9.0)
[2022-04-06 17:28] LABS: WBC Urine 0-3 /hpf
[2022-04-06 17:33] LABS: Add Urine Microscopic? YES; Blood Urine Trace-Intact (Negative)
--- NOTE | 2022-04-06 18:12 | PCCCNOTE ---
spoke with via phone, whom states that she was interested in palliative care through [facility]. CC informed her that [facility] does not have a palliative care program, stated that she has been on the phone with [facility] all day and that all she needed was an order for patient to be active with [facility]. patient's stated that she does not want him to go to a skilled nursing. CC spoke with david [phone] and nohemy from [facility] whom have been in contact with . Nohemy [phone] to evaluate for [facility] hospice at this time. CC will continue to follow.
--- NOTE | 2022-04-06 18:58 | PC.NURSE ---
[facility] called to request fax of order for evaluation, faxed to [phone] at this time.
--- NOTE | 2022-04-06 19:22 | PC.NURSE ---
Hospice at bedside with patient at this time.
--- NOTE | 2022-04-06 19:46 | PC.NURSE ---
Provided pt with meal turkey sandwich, applesauce, chips, and apple juice
--- NOTE | 2022-04-06 19:48 | ED.SOB ---
HPI - SOB/Dyspnea General Chief Complaint: Shortness of Breath/Dyspnea Stated Complaint: difficulty breathing, gen. weakness, lethargy Time Seen by Provider: 04/06/22 14:50 Source: patient Mode of arrival: EMS Limitations: dementia History of Present Illness HPI Narrative: 77-year-old with a history of dementia, CAD was brought in from home with complaints of marked weakness. As per the EMS reported took 1-1/2-hour for him to get out of the bed this morning. Patient presently denies any chest pain complains of mild shortness of breath. No history of nausea, vomiting or fever or chills. Patient was discharged from the hospital on 729 for the same. Patient denies wants him to be placed in hospice care. MD elicited complaint: shortness of breath Pertinent past history: congestive heart failure Onset (ago): hour(s) (4) Timing: constant Severity: moderate Exacerbating factors: nothing Relieving factors: nothing Known history of: congestive heart failure Associated symptoms: denies other symptoms Related Data Home Medications Medication Instructions Recorded Confirmed aspirin 81 mg tablet,delayed 81 mg PO DAILY 09/23/19 03/31/22 release atorvastatin 10 mg tablet 10 mg PO DAILY 09/23/19 03/31/22 divalproex 500 mg tablet,extended 500 mg PO TID 09/23/19 03/31/22 release 24 hr lorazepam 1 mg tablet See Rx Instructions .Route 09/23/19 03/31/22 .COMPLEX PRN Anxiety risperidone 2 mg tablet 2 mg PO BID 09/23/19 03/31/22 tamsulosin 0.4 mg capsule 0.4 mg PO .COMPLEX 09/23/19 03/31/22 clonazepam 0.5 mg tablet 0.5 mg PO .COMPLEX 01/05/22 03/31/22 tramadol 50 mg tablet 50 mg PO BID PRN Pain 03/31/22 03/31/22 Allergies Allergy/AdvReac Type Severity Reaction Status Date / Time amlodipine Allergy Unknown Unknown Verified 04/06/22 15:41 codeine Allergy Unknown Unknown Verified 04/06/22 15:41 olanzapine Allergy Unknown Unknown Verified 04/06/22 15:41 salsalate Allergy Unknown Unknown Verified 04/06/22 15:41 doxycycline AdvReac Diarrhea Verified 04/06/22 15:41 Review of Systems Constitutional: Constitutional: Reports no additional constitutional complaints Eyes: Eyes: Reports no additional eye complaints ENT: Reports system reviewed and no additional complaints, except as documented Cardiovascular: Cardiovascular: Reports no additional cardiovascular complaints Respiratory: Respiratory: Reports as per HPI Gastrointestinal: Gastrointestinal: Reports no additional gastrointestinal complaints Musculoskeletal: Musculoskeletal: Reports no additional musculoskeletal complaints Integumentary/Breasts: Skin/Breast: Reports system reviewed and no additional complaints, except as docu Neurologic: Reports system reviewed and no additional complaints, except as documented PMFSH Past Medical History Medical History Anxiety Benign prostate hyperplasia Coronary artery disease Dementia Hyperlipidemia Parkinson disease Peripheral vascular disease Thrombocytopenia Surgical History Surgical History History of cardiac catheterization History of left knee surgery History of three vessel coronary artery bypass History of vascular surgery Bilateral lower extremity stents. Family History Family History Father Family history of lung cancer Mother Family history of malignant neoplasm of breast, Onset Age: 79 Family history of malignant neoplasm of breast in first degree relative Sibling Family history of malignant neoplasm of breast in first degree relative Other Diabetes mellitus Family history of allergic disorder Family history of cardiovascular disease Hypertension Social History Social History Social History: Surrogate medical decision maker: Marii Joseph, spouse. Code status: Full code. Smoking status
--- NOTE | 2022-04-06 19:58 | PC.NURSE ---
called [facility] to request transport. ETA [id number]
--- NOTE | 2022-04-06 21:08 | PC.NURSE ---
[facility] here
== END 2022-04-06 21:19 | disposition hospice, home (50) ==
PROVIDERS: Emergency Provider Family Medicine; PCP Nurse Practitioner Adult Health
DX: R53.1 Weakness (principal); F03.90 Unspecified dementia, unspecified severity, without behavioral disturbance, psychotic disturbance, mood disturbance, and anxiety; I25.10 Atherosclerotic heart disease of native coronary artery without angina pectoris; I50.9 Heart failure, unspecified; N40.0 Benign prostatic hyperplasia without lower urinary tract symptoms; E78.5 Hyperlipidemia, unspecified; G20 Parkinson's disease; I73.9 Peripheral vascular disease, unspecified; F41.9 Anxiety disorder, unspecified; Z79.82 Long term (current) use of aspirin; F17.290 Nicotine dependence, other tobacco product, uncomplicated; J98.4 Other disorders of lung; R91.8 Other nonspecific abnormal finding of lung field; R00.0 Tachycardia, unspecified; R94.31 Abnormal electrocardiogram [ECG] [EKG]
CPT/HCPCS: 36415; 51701; 71045; 80053; 81001; 85025; 93005; 96360; 99283; J7040